=== PATIENT | female | born 1940 | race Caucasian/White ===

== ENCOUNTER 2017-02-14 20:09 | Inpatient (IN) | payer MEDICARE ==
[~2017-02-14] VITALS: Ht 152.4 cm; Wt 72.7 kg
[2017-02-14 20:00] VITALS: BP 136/60; PULSE 91; RESP 18; TEMP 97.9; O2SAT 97
[2017-02-14 20:10] VITALS: BP 193/89; PULSE 95; RESP 18; TEMP 98.1; O2SAT 99
--- NOTE | 2017-02-14 20:27 | PD ---
HPI Chief Complaint: Abdominal Pain Time Seen by Provider: 20:25 Travel History International Travel<30 days: No Contact w/Intl Traveler<30days: No Traveled to known affect area: No History of Present Illness HPI 76-year-old female presents the emergency department with sudden onset left sided abdominal pain at 4:00 this evening. There was no injury associated with this pain. Patient states the pain has progressively gotten worse, and she had 10 episodes of vomiting at home prior to arrival here to the emergency department. She was brought in by her daughter. Patient does have history of kidney stones and question of diverticulitis in the past. Patient denies fever , chills, or diarrhea. Patient states pain is now 8-10 out of 10. She states it feels like she was punched. Patient denies urinary symptoms such as dysuria or frequency or obstruction. Pain is specific to the left lower abdominal area. She states it radiates to her back. She has no known drug allergies. PFSH Social History Alcohol Use: No Tobacco Use: No Substance Use: No Allergies-Medications (Allergen,Severity, Reaction): Coded Allergies: No Known Allergies (Verified Allergy, Unknown, 02/14/17) Reported Meds & Prescriptions Reported Meds & Active Scripts Active Reported Simvastatin 20 Mg Tab 20 Mg PO DAILY Dicyclomine (Dicyclomine HCl) 10 Mg Cap 10 Mg PO QID Levothyroxine (Levothyroxine Sodium) 75 Mcg Tab 75 Mcg PO DAILY Pentoxifylline ER (Pentoxifylline) 400 Mg Tab 400 Mg PO DAILY Review of Systems Except as stated in HPI: all other systems reviewed are Neg General / Constitutional: No: Fever, Chills Eyes: No: Visual changes HENT: No: Headaches Cardiovascular: No: Chest Pain or Discomfort Respiratory: No: Shortness of Breath Gastrointestinal: Positive: Nausea, Vomiting, Abdominal Pain, No: Diarrhea Genitourinary: Positive: Flank Pain, No: Urgency, Frequency, Dysuria Musculoskeletal: No: Pain Skin: No Rash Neurologic: No: Weakness Psychiatric: No: Depression Endocrine: No: Polydipsia Hematologic/Lymphatic: No: Easy Bruising Physical Exam Narrative GENERAL: Patient appears in moderate distress. SKIN: Warm and dry. Normal color. Normal turgor. No rash. HEAD: Atraumatic. Normocephalic. EYES: Pupils equal and round. No scleral icterus. No injection or drainage. ENT: No nasal bleeding or discharge. Mucous membranes pink and moist. Posterior pharynx is normal. Airway is patent. NECK: Trachea midline. Supple nontender. CARDIOVASCULAR: Regular rate and rhythm. RESPIRATORY: No accessory muscle use. Clear to auscultation. Breath sounds equal bilaterally. GASTROINTESTINAL: Abdomen soft, patient has point tenderness in the left lower lateral abdomen, nondistended. Positive pleuritic signs with mild guarding and rebound. Hepatic and splenic margins not palpable. MUSCULOSKELETAL: Extremities without clubbing, cyanosis, or edema. No obvious deformities. NEUROLOGICAL: Awake and alert. No obvious cranial nerve deficits. Motor grossly within normal limits. Five out of 5 muscle strength in the arms and legs. Normal speech. PSYCHIATRIC: Appropriate mood and affect; insight and judgment normal. Data Data Last Documented VS Vital Signs Date Time Temp Pulse Resp B/P (MAP) Pulse Ox O2 Delivery O2 Flow Rate FiO2 02/14/17 20:10 98.1 95 18 193/89 (123) 99 Room Air Orders Orders Complete Blood Count With Diff (02/14/17 20:38) Comprehensive Metabolic Panel (02/14/17 20:38) Lipase (02/14/17 20:38) Lactic Acid (02/14/17 20:38) Prothrombin Time / Inr (Pt) (02/14/17 20:38) Act Partial Throm Time (Ptt) (02/14/17 20:38) Urinalysis - C+S If Indicated (02/14/17 20:38) Ct Abd/Pel W/O Iv Contrast (02/14/17 20:38) Iv Access Insert/Monitor (02/14/17 20:38) Ecg Monitoring (02/14/17 20:38) Oximetry (02/14/17 20:38) NPO (02/14/17 20:38) Morphine Inj (Morphine Inj) (02/14/17 20:45) Ondansetron Inj (Zofran Inj) (02/14/17 20:45) Sodium Chlor 0.9% 1000 Ml Inj (Ns 1000 M (02/14/17 20:38) Sodium Chloride 0.9% Flush (Ns Flush) (02/14/17 20:45) Morphine Inj (Morphine Inj) (02/14/17 21:00) Tamsulosin (Flomax) (02/14/17 21:45) Ketorolac Inj (Toradol Inj) (02/14/17 21:45) Consult Urology (02/14/17 ) Admit Order (Ed Use Only) (02/14/17 21:52) Labs Laboratory Tests Test 02/14/17 20:50 White Blood Count 7.7 TH/MM3 Red Blood Count 4.81 MIL/MM3 Hemoglobin 14.5 GM/DL Hematocrit 43.6 % Mean Corpuscular Volume 90.7 FL Mean Corpuscular Hemoglobin 30.1 PG Mean Corpuscular Hemoglobin Concent 33.2 % Red Cell Distribution Width 13.7 % Platelet Count 187 TH/MM3 Mean Platelet Volume 10.1 FL Neutrophils (%) (Auto) 79.4 % Lymphocytes (%) (Auto) 13.4 % Monocytes (%) (Auto) 6.3 % Eosinophils (%) (Auto) 0.6 % Basophils (%) (Auto) 0.3 % Neutrophils # (Auto) 6.1 TH/MM3 Lymphocytes # (Auto) 1.0 TH/MM3 Monocytes # (Auto) 0.5 TH/MM3 Eosinophils # (Auto) 0.0 TH/MM3 Basophils # (Auto) 0.0 TH/MM3 CBC Comment DIFF FINAL Differential Comment Prothrombin Time 10.6 SEC Prothromb Time International Ratio 1.0 RATIO Activated Partial Thromboplast Time 26.1 SEC Urine Color YELLOW Urine Turbidity CLEAR Urine pH 6.0 Urine Specific [place] 1.023 Urine Protein 30 mg/dL Urine Glucose (UA) TRACE mg/dL Urine Ketones 80 mg/dL Urine Occult Blood LARGE Urine Nitrite NEG Urine Bilirubin NEG Urine Urobilinogen LESS THAN 2.0 MG/DL Urine Leukocyte Esterase NEG Urine RBC /hpf Urine WBC 3 /hpf Urine Squamous Epithelial Cells 1 /hpf Urine Mucus FEW /lpf Urine Yeast (Budding) MOD Microscopic Urinalysis Comment CULT NOT INDICATED Blood Urea Nitrogen 21 MG/DL Creatinine 1.20 MG/DL Random Glucose 122 MG/DL Total Protein 8.2 GM/DL Albumin 3.3 GM/DL Calcium Level 8.8 MG/DL Alkaline Phosphatase 100 U/L Aspartate Amino Transf (AST/SGOT) 24 U/L Alanine Aminotransferase (ALT/SGPT) 20 U/L Total Bilirubin 0.4 MG/DL Sodium Level 138 MEQ/L Potassium Level 3.6 MEQ/L Chloride Level 104 MEQ/L Carbon Dioxide Level 24.5 MEQ/L Anion Gap 10 MEQ/L Estimat Glomerular Filtration Rate 44 ML/MIN Lactic Acid Level 1.5 mmol/L Lipase 107 U/L [facility] Medical Decision Making Medical Screen Exam Complete: Yes Emergency Medical Condition: Yes Differential Diagnosis Left lower abdominal pain. Renal colic. Diverticulitis. Bowel perforation. Narrative Course Patient is medically stable at time of exam. Labs ordered including CBC, CMP, lipase, lactic acid, coags. and urinalysis. IV access is obtained, and the patient is given 2 mg morphine IV as well as [address] the abdomen and pelvis is ordered without contrast. CBC is unremarkable. CMP shows BUN of 21, creatinine is 1.020, GFR is 44. Otherwise unremarkable. Urinalysis shows large blood with 80 ketones, and 30 protein. No signs of infection noted. CT shows obstructive uropathy on the left side with an 8 mm calcified stone in the proximal ureter causing moderate hydronephrosis. Patient is given Toradol 30 mg IV as well as 0.4 mg Flomax by mouth. Patient discussed with Dr. Sharif who feels the patient warrants admission with urology consult, and pain control. Call was placed to the hospitalist for admission. Diagnosis Primary Impression: Hydronephrosis with renal calculous obstruction Additional Impression: Intractable right lower quadrant abdominal pain Admitting Information Admitting Physician Requests: Admit Condition: Stable Severo Cooley Feb 14, 2017 20:27
[2017-02-14] MEDS ORDERED: LEVO75TA3 PO (20:33)
[2017-02-14] MEDS ORDERED: PENT400T PO (20:33)
[2017-02-14] MEDS ORDERED: DICY10CA12 PO (20:33)
[2017-02-14] MEDS ORDERED: SIMV20TA PO (20:33)
[2017-02-14] MEDS ORDERED: SODIUM CHLOR 0.9% 1000 ML INJ 1,000 ML IV SCH (20:38)
[2017-02-14] MEDS ORDERED: ONDANSETRON HCL 4 MG/2 ML VIAL IVP ONE (20:45)
[2017-02-14] MEDS ORDERED: MORPHINE SULFATE 4 MG/ML INJ IV PUSH ONE (20:45)
[2017-02-14] MEDS ORDERED: SODIUM CHLORIDE 0.9% FLUSH 10 ML FLUSH IV FLUSH PRN ×2 (20:45→22:15)
[2017-02-14 21:00] VITALS: BP 143/94; PULSE 83
[2017-02-14] MEDS ORDERED: MORPHINE SULFATE 2 MG/ML INJ IV PUSH ONE (21:00)
[2017-02-14 21:13] LABS: AUTOMATED NEUTROPHIL # 6.1 TH/MM3 (1.8-7.7); BASOPHIL % 0.3 % (0.0-2.0); EOSINOPHIL % 0.6 % (0.0-4.0); HEMATOCRIT 43.6 % (35.0-46.0); HEMO FLAGS DIFF FINAL; LYMPH % 13.4 % (9.0-44.0); MEAN CELL VOLUME 90.7 FL (80.0-100.0); MEAN CORPUSCULAR HEMOGLOBIN 30.1 PG (27.0-34.0); MEAN CORPUSCULAR HGB CONC 33.2 % (32.0-36.0); MONO % 6.3 % (0.0-8.0); NEUT % 79.4 % (16.0-70.0); PLATELET COUNT 187 TH/MM3 (150-450); RED BLOOD COUNT 4.81 MIL/MM3 (4.00-5.30); RED CELL DISTRIBUTION WIDTH 13.7 % (11.6-17.2); WHITE BLOOD COUNT 7.7 TH/MM3 (4.0-11.0)
[2017-02-14 21:20] LABS: BLOOD, URINE LARGE (NEG); COMMENT (UR) CULT NOT INDICATED; CULTURE IF INDICATED CULT NOT INDICATED; GLUCOSE,URINE TRACE mg/dL (NEG); KETONE, URINE 80 mg/dL (NEG); MUCUS URINE FEW /lpf (OCC); NITRITE,URINE NEG (NEG); SQUAMOUS EPITHELIAL CELL URINE 1 /hpf (0-5); URINE COLOR YELLOW (YELLW/STRAW)
[2017-02-14 21:28] LABS: ANION GAP 10 MEQ/L (5-15); APTT (PATIENT) 26.1 SEC (24.3-30.1); AST (GOT) 24 U/L (15-37); BICARBONATE 24.5 MEQ/L (21.0-32.0); BLOOD UREA NITROGEN 21 MG/DL (7-18); CHLORIDE 104 MEQ/L (98-107); GLOMERULAR FILTRATION RATE 44 ML/MIN (>89); POTASSIUM 3.6 MEQ/L (3.5-5.1); PROTHROMBIN TIME - PATIENT 10.6 SEC (9.8-11.6); SODIUM (NA) 138 MEQ/L (136-145)
[2017-02-14 21:30] LABS: ALT (GPT) 20 U/L (10-53)
[2017-02-14 21:31] LABS: ALKALINE PHOSPHATASE 100 U/L (45-117); TOTAL BILIRUBIN ADULT 0.4 MG/DL (0.2-1.0)
--- NOTE | 2017-02-14 21:37 | RADRPT ---
EXAM DATE/TIME: 02/14/2017 21:08 [place] COMPARISON: No previous studies available for comparison. INDICATIONS : Left flank pain. ORAL CONTRAST: No oral contrast ingested. RADIATION DOSE: 16.06 CTDIvol (mGy) MEDICAL HISTORY : Renal calculi. SURGICAL HISTORY : None. ENCOUNTER: Initial ACUITY: 1 day PAIN SCALE: 8/10 LOCATION: Left flank TECHNIQUE: Renal colic protocol. Volumetric scanning of the abdomen and pelvis was performed. Using automated exposure control and adjustment of the mA and/or kV according to patient size, radiation dose was kep t as low as reasonably achievable to obtain optimal diagnostic quality images. DICOM format image da ta is available electronically for review and comparison. FINDINGS: Right side: No evidence of hydronephrosis. No calcified stones in the collecting system or ureter. Left side: Moderate left hydronephrosis and dilation of the extrarenal pelvis down into a obstructing stone in t he proximal ureter which measures 8 mm. There is induration of the fat of the perinephric space. No additional calcified stones seen. Bladder: Nondistended. No calcifications within the lumen. Other: No dilated loops of small or large bowel. The appendix is identified in the right lower quadrant and has a normal appearance. Normal diameter to the abdominal aorta. No evidence of free fluid. CONCLUSION: 1. Obstructive uropathy on the left side with an 8 mm calcified stone in the proximal ureter causing moderate hydronephrosis. 2. No additional stones seen. Jeevan Trejo MD on February 14, 2017 at 21:31 Board Certified Radiologist. This report was verified electronically.
[2017-02-14] MEDS ORDERED: KETOROLAC TROMETHAMINE 30 MG/ML (IVP) VIAL IV PUSH ONE (21:45)
[2017-02-14] MEDS ORDERED: TAMSULOSIN HCL 0.4 MG CAP PO ONE (21:45)
[2017-02-14 21:50] VITALS: O2SAT 90; O2SAT 96
--- NOTE | 2017-02-14 22:12 | HHI.HP ---
[facility] Unknown Admission Diagnosis left obstructive uropathy. Renal colic. Diagnoses: (1) Intractable abdominal pain Diagnosis: Principal (2) Renal stone Diagnosis: Principal (3) Hydronephrosis Diagnosis: Principal (4) Renal insufficiency Diagnosis: Principal (5) HTN (hypertension) Diagnosis: Principal Travel History International Travel<30 Days: No Contact w/Intl Traveler <30 Da: No Traveled to Known Affected Are: No History of Present Illness This is a 76-year-old [place] female with a PMH of Renal Stones, Hyperlipidemia and Hypothyroidism who presented to the ER with complaints of severe left-sided flank pain starting earlier today. Reports symptoms similar to previous episodes of renal stones. Denies fever, chills, or sick contacts, but reports nausea, no vomiting. On arrival, BP 193/89, HR 95, O2 sat 99% on RA , Afebrile. CBC unremarkable. Creatinine 1.20, no previous labs for comparison. Lactic Acid normal. INR 1.0. UA with hematuria, negative for UTI. CT Abd/Pelvis with obstructive uropathy on the left, 8 mm calcified stone proximal ureter causing moderate hydronephrosis. Dr. Allen consulted by ER physicianapryl in am. Review of Systems Except as stated in HPI: all other systems reviewed are Neg ROS: 14 point review of systems otherwise negative. Past Family Social History Past Medical History PMH: Renal Stones, Hyperlipidemia and Hypothyroidism Past Surgical History PAST SURGICAL HISTORY: Right Ankle Surgery, Bilateral Knee Replacement Allergies: Coded Allergies: No Known Allergies (Verified Allergy, Unknown, 02/14/17) Family History PAST FAMILY HISTORY: Reviewed. No h/o DM or CAD Social History PAST SOCIAL HISTORY: Negative for alcohol, tobacco or drugs. Physical Exam Vital Signs Vital Signs Date Time Temp Pulse Resp B/P (MAP) Pulse Ox O2 Delivery O2 Flow Rate FiO2 02/14/17 20:10 98.1 95 18 193/89 (123) 99 Room Air Physical Exam PE: GENERAL: Very pleasant elderly female in no acute distress. HEENT: PERRLA, EOMI. No scleral icterus or conjunctival pallor. No lid lag or facial droop. CARDIOVASCULAR: Regular rate and rhythm. No obvious murmurs to auscultation. No chest tenderness to palpation. RESPIRATORY: No obvious rhonchi or wheezing. Clear to auscultation. Breath sounds equal bilaterally. GASTROINTESTINAL: Abdomen soft, left-sided flank tenderness, nondistended. BS normal. MUSCULOSKELETAL: Extremities without clubbing, cyanosis, or edema. No obvious deformities. NEUROLOGICAL: Awake, alert and oriented x4. No focal neurologic deficits. Moving both upper and lower extremities spontaneously. Laboratory Laboratory Tests Test 02/14/17 20:50 White Blood Count 7.7 Red Blood Count 4.81 Hemoglobin 14.5 Hematocrit 43.6 Mean Corpuscular Volume 90.7 Mean Corpuscular Hemoglobin 30.1 Mean Corpuscular Hemoglobin Concent 33.2 Red Cell Distribution Width 13.7 Platelet Count 187 Mean Platelet Volume 10.1 Neutrophils (%) (Auto) 79.4 Lymphocytes (%) (Auto) 13.4 Monocytes (%) (Auto) 6.3 Eosinophils (%) (Auto) 0.6 Basophils (%) (Auto) 0.3 Neutrophils # (Auto) 6.1 Lymphocytes # (Auto) 1.0 Monocytes # (Auto) 0.5 Eosinophils # (Auto) 0.0 Basophils # (Auto) 0.0 CBC Comment DIFF FINAL Differential Comment Prothrombin Time 10.6 Prothromb Time International Ratio 1.0 Activated Partial Thromboplast Time 26.1 Urine Color YELLOW Urine Turbidity CLEAR Urine pH 6.0 Urine Specific [place] 1.023 Urine Protein 30 Urine Glucose (UA) TRACE Urine Ketones 80 Urine Occult Blood LARGE Urine Nitrite NEG Urine Bilirubin NEG Urine Urobilinogen LESS THAN 2.0 Urine Leukocyte Esterase NEG Urine RBC Urine WBC 3 Urine Squamous Epithelial Cells 1 Urine Mucus FEW Urine Yeast (Budding) MOD Microscopic Urinalysis Comment CULT NOT INDICATED Blood Urea Nitrogen 21 Creatinine 1.20 Random Glucose 122 Total Protein 8.2 Albumin 3.3 Calcium Level 8.8 Alkaline Phosphatase 100 Aspartate Amino Transf (AST/SGOT) 24 Alanine Aminotransferase (ALT/SGPT) 20 Total Bilirubin 0.4 Sodium Level 138 Potassium Level 3.6 Chloride Level 104 Carbon Dioxide Level 24.5 Anion Gap 10 Estimat Glomerular Filtration Rate 44 Lactic Acid Level 1.5 Lipase 107 Result Diagram: 02/14/17204902/14/172049 Caprini VTE Risk Assessment Caprini VTE Risk Assessment: No/Low Risk (score <= 1) Caprini Risk Assessment Model Point Value = 1 Point Value = 2 Point Value = 3 Point Value = 5 Age 41-60 Minor surgery BMI > 25 kg/m2 Swollen legs Varicose veins or History of unexplained or recurrent spontaneous Oral contraceptives or hormone replacement Sepsis (< 1 month) Serious lung disease, including pneumonia (< 1 month) Abnormal pulmonary function Acute myocardial infarction Congestive heart failure (< 1 month) History of inflammatory bowel disease Medical patient at bed rest Age 61-74 Arthroscopic surgery Major open surgery (> 45 min) Laparoscopic surgery (> 45 min) Malignancy Confined to bed (> 72 hours) Immobilizing plaster cast Central venous access Age >= 75 History of VTE Family history of VTE Factor V Leiden Prothrombin [id number] Lupus anticoagulant Anticardiolipin antibodies Elevated serum homocysteine Heparin-induced thrombocytopenia Other congenital or acquired thrombophilia Stroke (< 1 month) Elective arthroplasty Hip, pelvis, or leg fracture Acute spinal cord injury (< 1 month) Prophylaxis Regimen Total Risk Factor Score Risk Level Prophylaxis Regimen 0-1 Low Early ambulation 2 Moderate Order ONE of the following: *Sequential Compression Device (SCD) *Heparin 5000 units SQ BID 3-4 Higher Order ONE of the following medications: *Heparin 5000 units SQ TID *Enoxaparin/Lovenox 40 mg SQ daily (WT < 150 kg, CrCl > 30 mL/min) *Enoxaparin/Lovenox 30 mg SQ daily (WT < 150 kg, CrCl > 10-29 mL/min) *Enoxaparin/Lovenox 30 mg SQ BID (WT < 150 kg, CrCl > 30 mL/min) AND/OR *Sequential Compression Device (SCD) 5 or more Highest Order ONE of the following medications: *Heparin 5000 units SQ TID (Preferred with Epidurals) *Enoxaparin/Lovenox 40 mg SQ daily (WT < 150 kg, CrCl > 30 mL/min) *Enoxaparin/Lovenox 30 mg SQ daily (WT < 150 kg, CrCl > 10-29 mL/min) *Enoxaparin/Lovenox 30 mg SQ BID (WT < 150 kg, CrCl > 30 mL/min) AND *Sequential Compression Device (SCD) Assessment and Plan Problem List: (1) Hydronephrosis ICD Code: N13.30 - Unspecified hydronephrosis (2) Renal stone ICD Code: N20.0 - Calculus of kidney (3) Intractable abdominal pain ICD Code: R10.9 - Unspecified abdominal pain (4) Renal insufficiency ICD Code: N28.9 - Disorder of kidney and ureter, unspecified (5) HTN (hypertension) ICD Code: I10 - Essential (primary) hypertension Assessment and Plan A/P: 1. Renal Stone: h/o renal stone w/ acute left-sided flank tenderness, CT Abd/ Pelvis w/ 8mm left ureteral stone, images reviewed by me. Dr. Allen consulted by ER physician, will eval in am for further intervention. 2. Hydronephrosis: secondary to above, CT Abd/Pelvis w/ moderate hydronephrosis secondary to left ureteral stone, likely require stent placement w/ subsequent lithotripsy. Afebrile, no leukocytosis, no need for emergent nephrostomy at this time. 3. Intractable Abd Pain: secondary to above, continue w/ analgesics/ antiemetics as needed. S/p Morphine and Toradol in ER. 4. Renal Insufficiency: Creatinine 1.20, BUN 21, no previous labs for comparison, presumably new. IVF for hydration, repeat labs in am. 5. HTN: BP 190's on arrival, likely compounded by pain complaints. BP currently 143/94, HR 83. Monitor BP. 6. DVT Prophylaxis: SCD/Teds 7. Social work for d/c planning as needed. 8. Case discussed w/ ER physician at length. Physician Certification 2 Midnight Certification Type: Admission for Inpatient Services Order for Inpatient Services The services are ordered in accordance with Medicare regulations or non- Medicare payer requirements, as applicable. In the case of services not specified as inpatient-only, they are appropriately provided as inpatient services in accordance with the 2-midnight benchmark. Estimated LOS (days): 2 days is the estimated time the patient will need to remain in the hospital, assuming treatment plan goals are met and no additional complications. Post-Hospital Plan: Not yet determined Sugar French MD Feb 14, 2017 22:12
[2017-02-14] MEDS ORDERED: LACTULOSE SYRUP 20 GM/30 ML CUP PO PRN (22:15)
[2017-02-14] MEDS ORDERED: MAGNESIUM HYDROXIDE SUSP 30 ML CUP PO PRN (22:15)
[2017-02-14] MEDS ORDERED: ONDANSETRON HCL 4 MG/2 ML VIAL IVP PRN (22:15)
[2017-02-14] MEDS ORDERED: BISACODYL 10 MG SUPP RECTAL PRN (22:15)
[2017-02-14] MEDS ORDERED: SENNOSIDES 8.6 MG TAB PO PRN (22:15)
[2017-02-14] MEDS ORDERED: ACETAMINOPHEN 325 MG TAB PO PRN (22:15)
[2017-02-15] VITALS: BP 142/58; PULSE 80; RESP 20; TEMP 96.4; O2SAT 98
[2017-02-15] MEDS: SODIUM CHLOR 0.9% 1000 ML INJ 1,000 ML IV SCH ×3 (00:08→18:07)
[2017-02-15] MEDS: LEVOTHYROXINE SODIUM 75 MCG TAB PO SCH (06:09)
[2017-02-15 08:00] VITALS: BP 199/97; PULSE 84; RESP 20; TEMP 97.2; O2SAT 98
[2017-02-15] MEDS: HYDROmorphone HCL PF 2 MG/ML VIAL IV PUSH PRN (08:09)
[2017-02-15] MEDS: PENTOXIFYLLINE 400 MG CONTROLLED RELEASE TAB PO SCH (08:11)
[2017-02-15] MEDS: SODIUM CHLORIDE 0.9% FLUSH 10 ML FLUSH IV FLUSH SCH ×2 (08:11→21:20)
[2017-02-15] MEDS: DOCUSATE SODIUM 50 MG/SENNA 8.6 MG TAB PO SCH ×2 (08:11→21:17)
[2017-02-15] MEDS: PRAVASTATIN SOD 20 MG TAB PO SCH (08:12)
[2017-02-15] MEDS ORDERED: TAMSULOSIN HCL 0.4 MG CAP PO SCH (09:00)
[2017-02-15 10:00] VITALS: BP 122/44
[2017-02-15 10:36] LABS: AUTOMATED NEUTROPHIL # 7.4 TH/MM3 (1.8-7.7); BASOPHIL % 0.6 % (0.0-2.0); EOSINOPHIL % 0.3 % (0.0-4.0); HEMATOCRIT 40.8 % (35.0-46.0); HEMO FLAGS DIFF FINAL; LYMPH % 9.2 % (9.0-44.0); LYMPHOCYTE # 0.8 TH/MM3 (1.0-4.8); MEAN CELL VOLUME 91.7 FL (80.0-100.0); MEAN CORPUSCULAR HEMOGLOBIN 30.8 PG (27.0-34.0); MEAN CORPUSCULAR HGB CONC 33.6 % (32.0-36.0); MONO % 6.5 % (0.0-8.0); NEUT % 83.4 % (16.0-70.0); PLATELET COUNT 164 TH/MM3 (150-450); RED BLOOD COUNT 4.45 MIL/MM3 (4.00-5.30); RED CELL DISTRIBUTION WIDTH 13.6 % (11.6-17.2); WHITE BLOOD COUNT 8.8 TH/MM3 (4.0-11.0)
[2017-02-15 10:58] LABS: ANION GAP 8 MEQ/L (5-15); AST (GOT) 22 U/L (15-37); BICARBONATE 25.6 MEQ/L (21.0-32.0); BLOOD UREA NITROGEN 18 MG/DL (7-18); CHLORIDE 107 MEQ/L (98-107); GLOMERULAR FILTRATION RATE 45 ML/MIN (>89); POTASSIUM 4.1 MEQ/L (3.5-5.1); SODIUM (NA) 141 MEQ/L (136-145)
[2017-02-15] MEDS ORDERED: CHLORHEXIDINE GLUCONATE 2 % 1 PACK (2 CLOTHS) TOPICAL PRN (11:00)
[2017-02-15] MEDS ORDERED: METOPROLOL TARTRATE 25 MG TAB PO PRN (11:00)
[2017-02-15] MEDS ORDERED: INSULIN HUMAN REGULAR 1,000 UNITS/10 ML VIAL SQ PRN (11:00)
[2017-02-15] MEDS ORDERED: LACTATED RINGER'S 1000 ML IV PRN (11:00)
[2017-02-15] MEDS ORDERED: SODIUM CHLORID 0.9% 500 ML IV PRN (11:00)
[2017-02-15] MEDS ORDERED: POVIDONE IODINE 5% (ANTISEPSIS KIT) 4 APPLICATIONS EACH NARE PRN (11:00)
[2017-02-15 11:01] LABS: ALKALINE PHOSPHATASE 77 U/L (45-117); ALT (GPT) 16 U/L (10-53); TOTAL BILIRUBIN ADULT 0.3 MG/DL (0.2-1.0)
[2017-02-15 12:00] VITALS: BP 151/70; PULSE 73; RESP 18; TEMP 95.5; O2SAT 98
--- NOTE | 2017-02-15 12:17 | EKG ---
Date Performed: 02/15/2017 Time Performed: 10:57:57 PTAGE: 76 years EKG: Sinus rhythm NORMAL ECG NO PREVIOUS TRACING DOCTOR: Michele Caro Interpretating Date/Time 02/15/2017 12:16:39
--- NOTE | 2017-02-15 14:25 | HHI.PR ---
Subjective Remarks Patient reported pain 7 out of 10, with positive nausea and vomiting, she is afebrile, no dysuria Awaiting neurology consultation Objective Vitals Vital Signs Date Time Temp Pulse Resp B/P (MAP) Pulse Ox O2 Delivery O2 Flow Rate FiO2 02/15/17 12:00 95.5 73 18 151/70 (97) 98 02/15/17 10:00 122/44 (70) 02/15/17 08:39 18 02/15/17 08:00 97.2 84 20 199/97 (131) 98 02/15/17 00:00 96.4 80 20 142/58 (86) 98 02/14/17 22:47 02/14/17 21:50 96 Nasal Cannula 2.00 02/14/17 21:50 90 02/14/17 21:00 83 143/94 (110) 02/14/17 20:10 98.1 95 18 193/89 (123) 99 Room Air 02/14/17 20:00 97.9 91 18 136/60 (85) 97 I/O 02/14/17 02/14/17 02/14/17 02/15/17 02/15/17 02/15/17 07:00 15:00 23:00 07:00 15:00 23:00 Intake Total 1000 ml Balance 1000 ml Intake IV Total 1000 ml Result Diagram: 02/15/17 1026 02/15/17 1026 Objective Remarks GENERAL: This is a well-nourished, well-developed patient, in no apparent distress. SKIN: No rashes, warm and dry HEAD: Atraumatic. Normocephalic. EYES: Pupils equal round and reactive. Extraocular motions intact. No scleral icterus. ENT: Nose without bleeding, or drainage, Airway patent. NECK: Trachea midline. Supple CARDIOVASCULAR: Regular rate and rhythm without murmurs, gallops, or rubs. RESPIRATORY: Fair air entry bilaterally. No wheezes, rales, or rhonchi. GASTROINTESTINAL: Abdomen soft, non-tender, nondistended. Positive bowel sounds MUSCULOSKELETAL: Extremities without clubbing, cyanosis, or edema. Pedal pulses appreciated NEUROLOGICAL: Awake and alert. Moves all extremity. Normal speech.no focal neurological deficit A/P Problem List: (1) Hydronephrosis ICD Code: N13.30 - Unspecified hydronephrosis (2) Renal stone ICD Code: N20.0 - Calculus of kidney (3) Intractable abdominal pain ICD Code: R10.9 - Unspecified abdominal pain (4) Renal insufficiency ICD Code: N28.9 - Disorder of kidney and ureter, unspecified (5) HTN (hypertension) ICD Code: I10 - Essential (primary) hypertension Assessment and Plan 02/15: Awaiting urology consultation, patient on O2 nasal cannula we'll try to wean down, monitor for fever A/P: 1. Nephrolithiasis: h/o renal stone w/ acute left-sided flank tenderness, CT Abd/Pelvis w/ 8mm left ureteral stone, images reviewed by me. Dr. Allen consulted awaiting their input 2. Hydronephrosis: secondary to above, CT Abd/Pelvis w/ moderate hydronephrosis secondary to left ureteral stone, likely require stent placement w/ subsequent lithotripsy. Afebrile, no leukocytosis, no need for emergent nephrostomy at this time. 3. Intractable Abd Pain: secondary to above, continue w/ analgesics/ antiemetics as needed. S/p Morphine and Toradol in ER. 4. Renal Insufficiency: Creatinine 1.20, BUN 21, no previous labs for comparison, presumably new. IVF for hydration, repeat labs in am. 5. HTN: BP 190's on arrival, likely compounded by pain complaints. BP currently 143/94, HR 83. Monitor BP. 6. DVT Prophylaxis: PATRICE/Johnathon Marmolejo MD Feb 15, 2017 14:25
[2017-02-15 16:00] VITALS: BP 156/72; PULSE 79; RESP 18; TEMP 96; O2SAT 98
--- NOTE | 2017-02-15 17:32 | PD.CONS ---
HPI Service Urology Consult Requested By Reason for Consult Left nephrolithiasis Primary Care Physician Unknown Diagnosis: (1) Hydronephrosis ICD Code: N13.30 - Unspecified hydronephrosis (2) Renal stone ICD Code: N20.0 - Calculus of kidney (3) Intractable abdominal pain ICD Code: R10.9 - Unspecified abdominal pain (4) Renal insufficiency ICD Code: N28.9 - Disorder of kidney and ureter, unspecified (5) HTN (hypertension) ICD Code: I10 - Essential (primary) hypertension History of Present Illness 76yo female with left nephrolithiasis admitted with significant left flank pain. CT scan identified a left proximal ureteral stone approximately 8 mm in size resulting in left-sided hydronephrosis. Patient has been had persistent and severe left flank pain that is sharp, 10/10 radiating to the left flank for over 1 day now. She has associated nausea and vomiting. Her pain has been uncontrolled since admit. She does have a history of kidney stones, usually of which they pass on their own. No fevers thus far. Review of Systems ROS Limitations: Clinical Condition Constitutional: DENIES: Fever Endocrine: DENIES: Polyuria Eyes: DENIES: Blurred vision Ears, nose, mouth, throat: DENIES: Tinnitus Respiratory: DENIES: Apneas, Cough Cardiovascular: DENIES: Chest pain Gastrointestinal: COMPLAINS OF: Abdominal pain Musculoskeletal: COMPLAINS OF: Back pain Integumentary: DENIES: Rash Neurologic: DENIES: Headache Psychiatric: DENIES: Anxiety Except as stated in HPI: all other systems reviewed are Neg Past Family Social History Past Medical History Renal Stones, Hyperlipidemia and Hypothyroidism Past Surgical History Right Ankle Surgery, Bilateral Knee Replacement Reported Medications Reported Meds & Active Scripts Active Ditropan (Oxybutynin Chloride) 5 Mg Tab 5 Mg PO Q8HR Hydrocodone-Acetamin 5-325 mg (Hydrocodone/Acetaminophen) 5 Mg-325 Mg Tablet 1 Tab PO Q4H PRN Flomax (Tamsulosin HCl) 0.4 Mg Cap 0.4 Mg PO DAILY Cipro (Ciprofloxacin HCl) 500 Mg Tab 500 Mg PO Q12HR Reported Simvastatin 20 Mg Tab 20 Mg PO DAILY Dicyclomine (Dicyclomine HCl) 10 Mg Cap 10 Mg PO QID Levothyroxine (Levothyroxine Sodium) 75 Mcg Tab 75 Mcg PO DAILY Pentoxifylline ER (Pentoxifylline) 400 Mg Tab 400 Mg PO DAILY Allergies: Coded Allergies: No Known Allergies (Verified Allergy, Unknown, 02/14/17) Family History Family history Reviewed and pertinent for kidney stones in daughter. No h/o DM or CAD Social History Negative for alcohol, tobacco or drugs. Physical Exam Vital Signs Date Time Temp Pulse Resp B/P (MAP) Pulse Ox O2 Delivery O2 Flow Rate FiO2 02/15/17 16:00 96.0 79 18 156/72 (100) 98 02/15/17 12:00 95.5 73 18 151/70 (97) 98 02/15/17 10:00 122/44 (70) 02/15/17 08:39 18 02/15/17 08:00 97.2 84 20 199/97 (131) 98 02/15/17 00:00 96.4 80 20 142/58 (86) 98 02/14/17 22:47 02/14/17 21:50 96 Nasal Cannula 2.00 02/14/17 21:50 90 02/14/17 21:00 83 143/94 (110) 02/14/17 20:10 98.1 95 18 193/89 (123) 99 Room Air 02/14/17 20:00 97.9 91 18 136/60 (85) 97 Physical Exam GENERAL: This is a well-nourished, well-developed patient, in no apparent distress. SKIN: No rashes, ecchymoses or lesions. Cool and dry. HEAD: Atraumatic. Normocephalic. No temporal or scalp tenderness. EYES: Extraocular motions intact. No scleral icterus. No injection or drainage. ENT: Nose without bleeding, purulent drainage Airway patent. NECK: Trachea midline. No JVD or lymphadenopathy CARDIOVASCULAR: Normal pulses RESPIRATORY: nonlabored GASTROINTESTINAL: Abdomen soft, non-tender, nondistended MUSCULOSKELETAL: Extremities without clubbing, cyanosis, or edema. NEUROLOGICAL: Awake and alert.. Motor and sensory grossly within normal limits. Normal speech, Setswana speaking only. Lab results reviewed: Yes Laboratory Tests Test 02/14/17 20:50 02/15/17 10:26 White Blood Count 7.7 8.8 Red Blood Count 4.81 4.45 Hemoglobin 14.5 13.7 Hematocrit 43.6 40.8 Mean Corpuscular Volume 90.7 91.7 Mean Corpuscular Hemoglobin 30.1 30.8 Mean Corpuscular Hemoglobin Concent 33.2 33.6 Red Cell Distribution Width 13.7 13.6 Platelet Count 187 164 Mean Platelet Volume 10.1 9.9 Neutrophils (%) (Auto) 79.4 83.4 Lymphocytes (%) (Auto) 13.4 9.2 Monocytes (%) (Auto) 6.3 6.5 Eosinophils (%) (Auto) 0.6 0.3 Basophils (%) (Auto) 0.3 0.6 Neutrophils # (Auto) 6.1 7.4 Lymphocytes # (Auto) 1.0 0.8 Monocytes # (Auto) 0.5 0.6 Eosinophils # (Auto) 0.0 0.0 Basophils # (Auto) 0.0 0.0 CBC Comment DIFF FINAL DIFF FINAL Differential Comment Prothrombin Time 10.6 Prothromb Time International Ratio 1.0 Activated Partial Thromboplast Time 26.1 Urine Color YELLOW Urine Turbidity CLEAR Urine pH 6.0 Urine Specific [place] 1.023 Urine Protein 30 Urine Glucose (UA) TRACE Urine Ketones 80 Urine Occult Blood LARGE Urine Nitrite NEG Urine Bilirubin NEG Urine Urobilinogen LESS THAN 2.0 Urine Leukocyte Esterase NEG Urine RBC Urine WBC 3 Urine Squamous Epithelial Cells 1 Urine Mucus FEW Urine Yeast (Budding) MOD Microscopic Urinalysis Comment CULT NOT INDICATED Blood Urea Nitrogen 21 18 Creatinine 1.20 1.17 Random Glucose 122 135 Total Protein 8.2 6.9 Albumin 3.3 2.8 Calcium Level 8.8 8.1 Alkaline Phosphatase 100 77 Aspartate Amino Transf (AST/SGOT) 24 22 Alanine Aminotransferase (ALT/SGPT) 20 16 Total Bilirubin 0.4 0.3 Sodium Level 138 141 Potassium Level 3.6 4.1 Chloride Level 104 107 Carbon Dioxide Level 24.5 25.6 Anion Gap 10 8 Estimat Glomerular Filtration Rate 44 45 Lactic Acid Level 1.5 Lipase 107 Result Diagram: 02/15/17 1026 02/15/17 1026 Personally reviewed images: Yes Imaging Last Impressions Abdomen/Pelvis CT 02/14/172037 Signed Impressions: Service Date/Time: January 21:08 - CONCLUSION: 1. Obstructive uropathy on the left side with an 8 mm calcified stone in the proximal ureter causing moderate hydronephrosis. 2. No additional stones seen. Jeevan Trejo MD Assessment and Plan Problem List: (1) Hydronephrosis ICD Code: N13.30 - Unspecified hydronephrosis (2) Renal stone ICD Code: N20.0 - Calculus of kidney (3) Intractable abdominal pain ICD Code: R10.9 - Unspecified abdominal pain Assessment and Plan Given her significant pain in the proximal location of her stone and size is unlikely she would pass this stone. Therefore we discussed placement of left internal ureteral stent. The risks and benefits of this were discussed in detail with the patient and the daughter. The daughter translated. Patient and daughter understand and agree to proceed for left ureteral stent placement. Brenden Allen MD Feb 15, 2017 17:32
--- NOTE | 2017-02-15 17:33 | HHI.PR ---
Subjective Patient symptoms today Successful left ureteral stent placement -Patient is clear for discharge from Urology standpoint -Follow-up with Urology in clinic for definitive stone management and stent removal Objective Vital Signs Vital Signs Date Time Temp Pulse Resp B/P (MAP) Pulse Ox O2 Delivery O2 Flow Rate FiO2 02/15/17 16:00 96.0 79 18 156/72 (100) 98 02/15/17 12:00 95.5 73 18 151/70 (97) 98 02/15/17 10:00 122/44 (70) 02/15/17 08:39 18 02/15/17 08:00 97.2 84 20 199/97 (131) 98 02/15/17 00:00 96.4 80 20 142/58 (86) 98 02/14/17 22:47 02/14/17 21:50 96 Nasal Cannula 2.00 02/14/17 21:50 90 02/14/17 21:00 83 143/94 (110) 02/14/17 20:10 98.1 95 18 193/89 (123) 99 Room Air 02/14/17 20:00 97.9 91 18 136/60 (85) 97 Intake & Output 02/15/17 02/15/17 07:00 19:00 Intake Total 1000 ml Balance 1000 ml Intake IV Total 1000 ml Result Diagram: 02/15/17 1026 02/15/17 1026 Imaging Last 24 hours Impressions Abdomen/Pelvis CT 02/14/172037 Signed Impressions: Service Date/Time: January 21:08 - CONCLUSION: 1. Obstructive uropathy on the left side with an 8 mm calcified stone in the proximal ureter causing moderate hydronephrosis. 2. No additional stones seen. Jeevan Trejo MD Medications and IVs Current Medications Medications (Trade) Dose Ordered Sig/Christy Route Start Time Stop Time Status Last Admin (Flomax) 0.4 mg DAILY PO 02/15/17 09:00 02/15/17 08:10 Sodium Chloride 1,000 ml @ 100 mls/hr Q10H IV 02/14/17 22:07 02/15/17 08:11 (NS Flush) 2 ml UNSCH PRN IV FLUSH 02/14/17 22:15 (NS Flush) 2 ml BID IV FLUSH 02/15/17 09:00 (Zofran Inj) 4 mg Q6H PRN IVP 02/14/17 22:15 02/15/17 08:09 (Tylenol) 650 mg Q6H PRN PO 02/14/17 22:15 ([place] 5-325 Mg) 1 tab Q4H PRN PO 02/14/17 22:15 (Shweta-Colace) 1 tab BID PO 02/15/17 09:00 02/15/17 08:11 (Milk Of Magnesia Liq) 30 ml Q12H PRN PO 02/14/17 22:15 (Senokot) 17.2 mg Q12H PRN PO 02/14/17 22:15 (Dulcolax Supp) 10 mg DAILY PRN RECTAL 02/14/17 22:15 (Lactulose Liq) 30 ml DAILY PRN PO 02/14/17 22:15 (Dilaudid Pf Inj) 0.5 mg Q3H PRN IV PUSH 02/14/17 22:15 02/15/17 08:09 (Synthroid) 75 mcg DAILY@0700 PO 02/15/17 07:00 02/15/17 06:09 (TRENtal SR) 400 mg DAILY PO 02/15/17 09:00 (Pravachol) 40 mg DAILY PO 02/15/17 09:00 02/15/17 08:12 Lactated Ringer's 1,000 ml @ 30 mls/hr Q24H PRN IV 02/15/17 11:00 02/18/17 10:59 Sodium Chloride 500 ml @ 30 mls/hr [id number] PRN IV 02/15/17 11:00 02/18/17 10:59 (Lopressor) 25 mg LEATHER CLEANER PRN PO 02/15/17 11:00 02/18/17 10:59 (Betadine 5% Antisepsis Kit) 1 applic LEATHER [employer]ANER PRN EACH NARE 02/15/17 11:00 02/18/17 10:59 (Chlorhexidine 2% Cloth) 3 pack LEATHER [employer]ER PRN TOPICAL 02/15/17 11:00 02/18/17 10:59 (NovoLIN R INJ) See Protocol Table ... LEATHER CLEANER PRN SQ 02/15/17 11:00 02/18/17 10:59 Brenden Allen MD Feb 15, 2017 17:33
[2017-02-15] MEDS ORDERED: DO NOT ADM ANY ANTICOAGULANT DRUGS PRN (17:49)
[2017-02-15] MEDS: TAMSULOSIN HCL 0.4 MG CAP PO SCH (18:30)
[2017-02-15 20:00] VITALS: BP 178/73; PULSE 72; RESP 20; TEMP 97.3; O2SAT 95
[2017-02-15] MEDS: CIPROFLOXACIN 500 MG TAB PO SCH (21:17)
[2017-02-15] MEDS: OXYBUTYNIN CHLORIDE 5 MG TAB PO SCH (21:18)
[2017-02-15] MEDS: ACETAMINOPHEN/HYDROcodone 325 MG/5 MG TAB PO PRN (21:19)
[2017-02-16] VITALS: BP 162/72; PULSE 82; RESP 18; TEMP 97.3; O2SAT 99
[2017-02-16] MEDS: HYDROmorphone HCL PF 2 MG/ML VIAL IV PUSH PRN (00:46)
[2017-02-16] MEDS: SODIUM CHLOR 0.9% 1000 ML INJ 1,000 ML IV SCH ×2 (01:55→09:56)
[2017-02-16 04:00] VITALS: BP 134/63; PULSE 76; RESP 20; TEMP 97.5; O2SAT 95
[2017-02-16] MEDS: OXYBUTYNIN CHLORIDE 5 MG TAB PO SCH (06:00)
[2017-02-16] MEDS: LEVOTHYROXINE SODIUM 75 MCG TAB PO SCH (07:06)
[2017-02-16 08:00] VITALS: BP 122/65; PULSE 73; RESP 17; TEMP 97.6; O2SAT 96
[2017-02-16] MEDS: DOCUSATE SODIUM 50 MG/SENNA 8.6 MG TAB PO SCH (09:55)
[2017-02-16] MEDS: TAMSULOSIN HCL 0.4 MG CAP PO SCH (09:55)
[2017-02-16] MEDS: PENTOXIFYLLINE 400 MG CONTROLLED RELEASE TAB PO SCH (09:55)
[2017-02-16] MEDS: PRAVASTATIN SOD 20 MG TAB PO SCH (09:55)
[2017-02-16] MEDS: CIPROFLOXACIN 500 MG TAB PO SCH (09:55)
[2017-02-16] MEDS: SODIUM CHLORIDE 0.9% FLUSH 10 ML FLUSH IV FLUSH SCH (09:56)
[2017-02-16] MEDS ORDERED: TAMS5CAP PO (10:27)
[2017-02-16] MEDS ORDERED: OXYB5TAB8 PO (10:27)
[2017-02-16] MEDS ORDERED: HYDR-3516 PO (10:27)
[2017-02-16] MEDS ORDERED: CIPR-9 PO (10:27)
[2017-02-16] MEDS: ACETAMINOPHEN/HYDROcodone 325 MG/5 MG TAB PO PRN (10:47)
[2017-02-16 11:45] VITALS: O2SAT 96
--- NOTE | 2017-02-16 15:03 | HHI.PR ---
Subjective Remarks Feeling better, less pain no nausea, she had left ureter stent placed by urology and cleared for discharge Objective Vitals Vital Signs Date Time Temp Pulse Resp B/P (MAP) Pulse Ox O2 Delivery O2 Flow Rate FiO2 02/16/17 11:45 96 Nasal Cannula 2.00 02/16/17 08:00 97.6 73 17 122/65 (84) 96 02/16/17 04:00 97.5 76 20 134/63 (86) 95 02/16/17 00:00 97.3 82 18 162/72 (102) 99 02/15/17 20:00 97.3 72 20 178/73 (108) 95 02/15/17 18:22 97.8 71 18 154/68 (96) 96 Nasal Cannula 2 02/15/17 18:15 68 21 146/63 (90) 94 Nasal Cannula 2 02/15/17 18:00 71 19 145/65 (91) 94 Nasal Cannula 2 02/15/17 17:47 98.4 80 20 137/59 (85) 95 Nasal Cannula 4 02/15/17 16:00 96.0 79 18 156/72 (100) 98 I/O 02/15/17 02/15/17 02/15/17 02/16/17 02/16/17 02/16/17 07:00 15:00 23:00 07:00 15:00 23:00 Intake Total 600 ml Output Total 5 ml Balance 595 ml Intake Oral 0 ml IV Total 0 ml Other 600 ml Output Estimated Blood Loss 5 ml # Voids 5 Result Diagram: 02/15/17 1026 02/15/17 1026 Objective Remarks GENERAL: This is a well-nourished, well-developed patient, in no apparent distress. SKIN: No rashes, warm and dry HEAD: Atraumatic. Normocephalic. EYES: Pupils equal round and reactive. Extraocular motions intact. No scleral icterus. ENT: Nose without bleeding, or drainage, Airway patent. NECK: Trachea midline. Supple CARDIOVASCULAR: Regular rate and rhythm without murmurs, gallops, or rubs. RESPIRATORY: Fair air entry bilaterally. No wheezes, rales, or rhonchi. GASTROINTESTINAL: Abdomen soft, non-tender, nondistended. Positive bowel sounds MUSCULOSKELETAL: Extremities without clubbing, cyanosis, or edema. Pedal pulses appreciated NEUROLOGICAL: Awake and alert. Moves all extremity. Normal speech.no focal neurological deficit A/P Problem List: (1) Hydronephrosis ICD Code: N13.30 - Unspecified hydronephrosis (2) Renal stone ICD Code: N20.0 - Calculus of kidney (3) Intractable abdominal pain ICD Code: R10.9 - Unspecified abdominal pain (4) Renal insufficiency ICD Code: N28.9 - Disorder of kidney and ureter, unspecified (5) HTN (hypertension) ICD Code: I10 - Essential (primary) hypertension Assessment and Plan 02/15: Awaiting urology consultation, patient on O2 nasal cannula we'll try to wean down, monitor for fever 02/16, appreciate urology input status post left ureter stent placement, cleared for discharge onpo antibiotic A/P: 1. Nephrolithiasis: h/o renal stone w/ acute left-sided flank tenderness, CT Abd/Pelvis w/ 8mm left ureteral stone, images reviewed by me. Dr. Allen consulted awaiting their input 2. Hydronephrosis: secondary to above, CT Abd/Pelvis w/ moderate hydronephrosis secondary to left ureteral stone, likely require stent placement w/ subsequent lithotripsy. Afebrile, no leukocytosis, no need for emergent nephrostomy at this time. 3. Intractable Abd Pain: secondary to above, continue w/ analgesics/ antiemetics as needed. S/p Morphine and Toradol in ER. 4. Renal Insufficiency: Creatinine 1.20, BUN 21, no previous labs for comparison, presumably new. IVF for hydration, repeat labs in am. 5. HTN: BP 190's on arrival, likely compounded by pain complaints. BP currently 143/94, HR 83. Monitor BP. 6. DVT Prophylaxis: SCD/Teds Discharge Planning Discharge patient to home Condition on discharge: Improved Healthy heart Diet as tolerated Ad Yoselin activity Rx written: See med rec Follow-up with primary care physician and urology in 1 week Johnathon Alba MD Feb 16, 2017 15:03
--- NOTE | 2017-02-18 08:26 | MP ---
cc: EVER GOULD MD DATE OF SURGERY: 02/15/2017. PREOPERATIVE DIAGNOSIS: Left nephrolithiasis. POSTOPERATIVE DIAGNOSIS: Left nephrolithiasis. OPERATION: 1. Cystoscopy. 2. Left ureteral stent placement. SURGEON: Ever Gould MD. PERTINENT FINDINGS: 1. Proximal obstructing ureteral stone. 2. Successful placement of a 6 x 24 double-J ureteral stent on the left. HISTORY OF PRESENT ILLNESS: Belen Yañez is a 76-year-old female who was found to have an obstructing left proximal ureteral stone resulting in significant left-sided flank pain, hydronephrosis, nausea and vomiting. She now presents for left ureteral stent placement. DESCRIPTION OF THE PROCEDURE IN DETAIL: After proper informed consent was obtained, the patient was brought to the operating room and remained supine on the operating room table. Bilateral lower extremity SCDs were in place. The patient was then placed under general anesthesia. The patient was then placed in the lithotomy position and prepped and draped in the standard surgical fashion. After a proper time out was completed, a rigid cystoscope was inserted through the urethra and into the bladder. The urethral mucosa revealed no abnormalities or lesions bladder, bilateral ureteral orifices were identified and appeared normal. The bladder was inspected and no abnormality was noted. At this point, the patient was turned to the left and the left ureter was cannulated using a guidewire and passed up into the left renal pelvis. Position was confirmed via fluoroscopy. The stone was easily identified on the fluoroscopic images and located in the proximal left ureter. At this point, a 6 x 24 double-J ureteral stent was then successfully placed on the left with a good curl in the renal pelvis as well as in the bladder. At this point, the patient's bladder was emptied and the scope was then removed. The patient tolerated the procedure well. There were no complications. DISPOSITION: She will be discharged home and will follow up in clinic. She may return to her inpatient bed for observation and there are plans for discharge tonight versus tomorrow morning. Ever Gould M.D. BRENDA/LIVAN /5:18 PM /8:10 AM
== END 2017-02-16 12:25 | disposition home or self-care (01) | DRG 694 ==
LOC: NEPE 20:09 → NEDA 21:53 → N07A 22:51
PROVIDERS: ADMIT Hospitalist; ATTEND Hospitalist
PROC: 0T778DZ Dilation of Left Ureter with Intraluminal Device, Via Natural or Artificial Opening Endoscopic (ICD-10-PCS; principal; 2017-02-15 16:33)
DX: N13.2 Hydronephrosis with renal and ureteral calculous obstruction (principal); I10 Essential (primary) hypertension; N28.9 Disorder of kidney and ureter, unspecified; E03.9 Hypothyroidism, unspecified; Z96.653 Presence of artificial knee joint, bilateral; Z87.442 Personal history of urinary calculi
CPT/HCPCS: 74176; 80053; 81001; 82948; 83605; 83690; 85025; 85610; 85730; 93005; 96361; 96374; 96375; C2617; J1170; J1885; J2270; J2405; J7030

== ENCOUNTER → 2017-03-28 | Day surgery (SDC) | payer MEDICARE ==
[~2017-03-28] VITALS: Ht 152.4 cm; Wt 71.8 kg
[~2017-03-28] MED LIST: ACETAMINOPHEN/HYDROcodone 325 MG/5 MG TAB PO PRN; CHLORHEXIDINE GLUCONATE 2 % 1 PACK (2 CLOTHS) TOPICAL PRN; CIPR-9 PO; DEXAMETHASONE SOD PHOS 4 MG/ML VIAL IV ONE; DICY10CA12 PO; DO NOT ADM ANY ANTICOAGULANT DRUGS PRN; GLYCOPYRROLATE 1 MG/5 ML SYRINGE IV PUSH ONE; HYDR-3516 PO; INSULIN HUMAN REGULAR 1,000 UNITS/10 ML VIAL SQ PRN; IOHEXOL 350 MG/ML 50 ML BTL (for RAD DIAG) OTHER ONE; LABETALOL HCL 100 MG/20 ML VIAL IV ONE; LACTATED RINGER'S 1000 ML IV PRN; LEVO75TA3 PO; LEVOTHYROXINE SODIUM 75 MCG TAB PO SCH; LIDOCAINE HCL 1% PF 5 ML SYRINGE OTHER ONE; METOPROLOL TARTRATE 25 MG TAB PO PRN; NEOSTIGMINE 5 MG/5 ML SYRINGE IV PUSH ONE; ONDANSETRON HCL 4 MG/2 ML VIAL IV PUSH ONE; OXYB5TAB8 PO; OXYBUTYNIN CHLORIDE 5 MG TAB PO SCH; PENT400T PO; PERC5TAB12 PO; PHENYLEPH/NS 1000 MCG/10 ML SYR IV ONE; PROPOFOL 200 MG/20 ML AMP IV ONE; ROCURONIUM INJ 50 MG/5 ML SYRINGE IV PUSH ONE; SIMV20TA PO; SODIUM CHLORID 0.9% 500 ML IV PRN; TAMS5CAP PO; TAMSULOSIN HCL 0.4 MG CAP PO SCH; ceFAZolin 2 GM PREMIX 50 ML IV SCH; ceFAZolin 2 GM PREMIX 50 ML ONE
[2017-03-28] MEDS: POVIDONE IODINE 5% (ANTISEPSIS KIT) 4 APPLICATIONS EACH NARE PRN ×2 (13:00→13:27)
[2017-03-28 17:32] VITALS: BP 162/62; PULSE 64; RESP 18; TEMP 97.2; O2SAT 96
--- NOTE | 2017-03-29 13:23 | MP ---
cc: EVER GOULD MD DATE OF SURGERY 03/28/2017 PREOPERATIVE DIAGNOSIS Left side nephrolithiasis POSTOPERATIVE DIAGNOSIS Left side nephrolithiasis SURGEON Ever Gould MD SURGERY PERFORMED 1. Cystoscopy 2. Left ureteral stent removal 3. Left ureteroscopy 4. Laser lithotripsy 5. Stone basket extraction 6. Left renal stent placement with string attached, 6 x 24 double-J PERTINENT FINDINGS 1. Large left proximal stone burden identified. This was successfully fragmented with a 200 micron laser fiber into multiple small pieces. 2. All fragments of stone was successfully removed via basket extraction. 3. Placement of a temporary 6 x 24 double-J ureteral stent on the left with string attached. HISTORY OF PRESENT ILLNESS Belen Yañez is a 76-year-old female who was found to have left sided nephrolithiasis who underwent left ureteral stent placement approximately one month ago. She now presents for definitive management of her stone burden with urostomy and laser lithotripsy. PROCEDURE IN DETAIL After proper informed consent was obtained, the patient was brought to the operating room and laid supine on the operating room table. Bilateral lower extremity SCD's were then positioned. The patient was then placed under general anesthesia. The patient placed in the lithotomy position, prepped and draped in standard surgical fashion. After a proper time out was completed, the rigid cystoscope inserted through the urethra into the bladder. The urethral mucosa was within normal limits without any abnormalities or lesions identified. Upon entering the bladder, the bilateral ureteral orifices were identified. The left ureter was identified with the stent in place. The stent was then grasped and brought out through the urethral meatus. A wire was then passed through the stent to the left collecting system. Fluoroscopy identified the stone to be in the proximal ureter and the wire was able to be passed beyond this into the left renal pelvis. At this point, the stent was removed and a ureteral sheath was then advanced into the left ureter. The flexible ureteroscope was advanced through the sheath into the left proximal ureter and the stone was encountered. 200 micron laser fiber was used to fragment the stone into multiple small pieces. After adequate fragmentation, a 6 x 24 double J ureteral stent was successfully placed in the left collecting system with a good curl renal pelvis, as well as in the bladder with string attached in order to maintain the left collecting system open after significant lasering. It is important to note that the entire left collecting system was investigated as the ureteroscope was removed. The entire length of the ureter was within normal limits without any abnormalities, lesions or injury identified throughout. At this point, the patient's bladder was emptied and the scope was removed. The patient tolerated the procedures well with no complications. The strings attached to her lower abdomen with Tegaderm. The patient was taken to the PACU in good and stable condition. DISPOSITION The patient discharged home with follow up in the clinic for stent removal in 72 hours. Kathi Davis/TESS /3:49 PM /12:44 PM
== END | disposition home or self-care (01) ==
LOC: HSDC 11:49
PROVIDERS: ATTEND Urology
DX: N20.0 Calculus of kidney (principal); I10 Essential (primary) hypertension
CPT/HCPCS: 00918; 52356; 82365; 82370; 88300; C1769; C2617; J0690; J1100; J2370; J2405; J2710; J3010; J7120; Q9967